=== PATIENT | male | born 1995 | race Caucasian/White ===

== ENCOUNTER 2018-03-12 13:38 | Emergency (ER) | payer BC ==
[2018-03-12 13:41] VITALS: TEMP 36.7; Ht 198.1 cm
--- NOTE | 2018-03-12 14:27 | DIAGNOSTIC IMAGING REPORT ---
LEFT ANKLE 3 VIEWS; LEFT FOOT 3 VIEWS CLINICAL HISTORY: Left foot and ankle pain. Inversion injury. FINDINGS: 3 views of the left ankle and 3 views of the left foot are obtained. No prior studies are available for comparison at the time of dictation. The skeletal structures are well mineralized. No fracture is seen at the ankle joint. The ankle mortise is intact. No large joint effusion is identified. There is a tiny avulsion fracture identified along the dorsal aspect of the tarsal bones, likely arising from the navicular. There may also be a small avulsion fracture along the lateral aspect of the calcaneus, best seen on the anterior ankle view. No additional fracture is seen in the foot. There is soft tissue edema around the ankle, along the dorsal aspect of the foot, and along the lateral aspect of the hindfoot. The joint spaces of the foot are preserved. IMPRESSION: 1. No fracture is identified at the ankle joint. 2. There is a tiny avulsion fracture along the dorsal aspect of the tarsal bones, likely arising from the navicular. 3. A second avulsion fracture is suspected along the lateral aspect of the calcaneus. 4. Soft tissue edema is noted around the foot and ankle as above. Electronically signed by: Kam Silva M.D. 03/12/2018 2:25 PM Dictated Date/Time: 03/12/2018 2:22 PM
[2018-03-12] MEDS ORDERED: OXYC-90 PO (14:52)
--- NOTE | 2018-03-12 14:52 | EMERGENCY ROOM VISIT NOTE ---
History First contact with patient: 13:46 Chief Complaint: ANKLE PAIN Stated Complaint: SWOLLEN ANKLE History of Present Illness The patient is a 22 year old male who presents to the Emergency Room via private vehicle with complaints of "swollen ankle". The patient states that last night he was at a friend's house, and rolled his left ankle. He notes that he has been icing this region. He points to the top of the left foot as a location of pain that he rates as a 6-7/10. He states this occurred yesterday around midnight. He had 3 Advil about 30 minutes to 1 hour ago. He states that the pain is quite severe when he bears weight. At rest the pain is minimal. No numbness or tingling. Review of Systems A complete 6-point Review of Systems was discussed with the patient, with pertinent positives and negatives listed in the History of Present Illness. All remaining Review of Systems questions can be considered negative unless otherwise specified. Past Medical/Surgical History No pertinent. Family History No pertinent. Social History Smoking Status: Never Smoker Patient is a [employer] student. Current/Historical Medications Scheduled PRN Oxycodone Ir (Roxicodone Ir), 1 TAB PO Q4H PRN for Pain Physical Exam Vital Signs Date Time Temp Pulse Resp B/P (MAP) Pulse Ox O2 Delivery O2 Flow Rate FiO2 03/12/18 15:15 74 18 139/75 96 03/12/18 13:41 36.7 80 20 154/70 97 Room Air Physical Exam VITAL SIGNS - Vital signs and nursing notes were reviewed. Stable. Afebrile. GENERAL -22-year-old male appearing his stated age who is in no acute distress. Communicates well with provider and answers questions appropriately. SKIN -overlying the patient's left foot there is evidence of erythema and edema. No breaks in the integument. EXTREMITIES - No clubbing or peripheral cyanosis. No pretibial edema present. No tenderness of the patient's left knee, left ordonez with left ankle region. There is tenderness about the patient's left anterior foot on the lateral aspect. No neurovascular deficit. +5/5 strength noted in UE/LE bilaterally. Medical Decision & Procedures ER Provider Diagnostic Interpretation: LEFT ANKLE 3 VIEWS; LEFT FOOT 3 VIEWS CLINICAL HISTORY: Left foot and ankle pain. Inversion injury. FINDINGS: 3 views of the left ankle and 3 views of the left foot are obtained. No prior studies are available for comparison at the time of dictation. The skeletal structures are well mineralized. No fracture is seen at the ankle joint. The ankle mortise is intact. No large joint effusion is identified. There is a tiny avulsion fracture identified along the dorsal aspect of the tarsal bones, likely arising from the navicular. There may also be a small avulsion fracture along the lateral aspect of the calcaneus, best seen on the anterior ankle view. No additional fracture is seen in the foot. There is soft tissue edema around the ankle, along the dorsal aspect of the foot, and along the lateral aspect of the hindfoot. The joint spaces of the foot are preserved. IMPRESSION: 1. No fracture is identified at the ankle joint. 2. There is a tiny avulsion fracture along the dorsal aspect of the tarsal bones, likely arising from the navicular. 3. A second avulsion fracture is suspected along the lateral aspect of the calcaneus. 4. Soft tissue edema is noted around the foot and ankle as above. Electronically signed by: Kam Silva M.D. 03/12/2018 2:25 PM Dictated Date/Time: 03/12/2018 2:22 PM LEFT ANKLE 3 VIEWS; LEFT FOOT 3 VIEWS CLINICAL HISTORY: Left foot and ankle pain. Inversion injury. FINDINGS: 3 views of the left ankle and 3 views of the left foot are obtained. No prior studies are available for comparison at the time of dictation. The skeletal structures are well mineralized. No fracture is seen at the ankle joint. The ankle mortise is intact. No large joint effusion is identified. There is a tiny avulsion fracture identified along the dorsal aspect of the tarsal bones, likely arising from the navicular. There may also be a small avulsion fracture along the lateral aspect of the calcaneus, best seen on the anterior ankle view. No additional fracture is seen in the foot. There is soft tissue edema around the ankle, along the dorsal aspect of the foot, and along the lateral aspect of the hindfoot. The joint spaces of the foot are preserved. IMPRESSION: 1. No fracture is identified at the ankle joint. 2. There is a tiny avulsion fracture along the dorsal aspect of the tarsal bones, likely arising from the navicular. 3. A second avulsion fracture is suspected along the lateral aspect of the calcaneus. 4. Soft tissue edema is noted around the foot and ankle as above. Electronically signed by: Kam Silva M.D. 03/12/2018 2:25 PM Dictated Date/Time: 03/12/2018 2:22 PM Medical Decision Patient was seen and evaluated as above in room D5. Review was performed of nursing notes and vital signs. After obtaining a thorough history and physical examination the above work up was performed. He presents to us today with left foot pain. X-ray was obtained of the ankle and foot. There is to tiny avulsion fractures. Benefit versus risk of different modalities were discussed with the patient. He is a student and will have to attend numerous classes. For this reason I believe that a fracture boot is warranted. He will also be given crutches. I recommend orthopedic follow-up or return with worsening. He will be given a short prescription for pain medication he notes secondary to the level of pain despite using [id number] medication. I thoroughly discussed benefit versus risk. He verbalized understanding. The patient was educated upon management, educated upon todays findings/results, educated upon symptoms in which to return, had questions answered prior to discharge, and was discharged home in good condition. No red flags in the [place] drug monitoring system. I In the evaluation and treatment of this patient, the following differential diagnoses were considered: Ankle Fracture, Ankle Sprain, Distal Fibula Fracture , Distal Tibia Fracture, Foot Fracture, Maisonneuve Fracture. Impression Primary Impression: Foot fracture, left Departure Information Dispostion Home / Self-Care Condition GOOD Prescriptions Oxycodone Ir (Roxicodone Ir) 5 Mg Tab 1 TAB PO Q4H Y for Pain, #15 TAB For Initial Treatment Prov: Dhaval Quintana PA-C 03/12/18 Referrals No Doctor, Assigned (PCP) Krishan Vang MD Patient Instructions My [facility] Additional Instructions You have been treated in the Emergency Department for a left Ankle/foot injury. You have been prescribed Oxy IR to be used for pain control. This is a narcotic medication. You cannot drive or consume alcohol while on this medicine. This medicine should only be used for pain that cannot be controlled with over-the- counter pain medicines. For pain control, you can use the following [id number] medicines (if >12 yo): - Regular strength (325mg/tab) Tylenol (acetaminophen) 2 tabs every 4-6 hours as needed. Do not exceed 12 tablets in a 24 hour period. Avoid taking more than 3 grams (3000 mg) of Tylenol per day. This includes any other sources of acetaminophen you may take on a regular basis. - Regular strength (200 mg/tab) Advil (ibuprofen) 1-2 tabs every 4-6 hours as needed. Do not exceed a dose of 3200 mg per day. If this is a recent injury (<24 hrs), ice can be applied to the area of pain for the first 3 days to help decrease pain and inflammation. You have been provided the number for an Orthopaedic Surgeon. You should call this number as soon as possible to establish a follow-up visit from today's Emergency Department visit. Keep the ankle brace/splint in place until cleared by Orthopedics. Use the crutches you have been provided to keep ALL weight off of the ankle until weight bearing is tolerable. Return to the Emergency Department if your current symptoms worsen despite treatment course outlined above, or if you develop any of the following symptoms : intractable pain despite aforementioned treatment course or new onset of numbness or tingling of the foot.
[2018-03-12 15:15] VITALS: BP 139/75; PULSE 74; O2SAT 96
== END 2018-03-12 15:18 | disposition home or self-care (01) ==
LOC: C.EDB 13:40 → C.EDD 15:18
DX: S92.202A Fracture of unspecified tarsal bone(s) of left foot, initial encounter for closed fracture (principal); X50.9XXA Other and unspecified overexertion or strenuous movements or postures, initial encounter